=== PATIENT | male | born 1955 | race Caucasian/White ===

== ENCOUNTER 2019-02-09 11:21 | Emergency (ER) | payer MEDICARE, MEDICAID ==
[~2019-02-09] VITALS: Ht 190.5 cm; Wt 43.0 kg
[2019-02-09 13:49] VITALS: BP 110/71
== END 2019-02-09 14:44 | disposition home or self-care (01) ==
LOC: ER 11:22
DX: T81.89XA Other complications of procedures, not elsewhere classified, initial encounter (principal); S30.1XXA Contusion of abdominal wall, initial encounter; X58.XXXA Exposure to other specified factors, initial encounter; Y93.89 Activity, other specified; Y92.89 Other specified places as the place of occurrence of the external cause; Y99.8 Other external cause status
CPT/HCPCS: 93926; 99284

== ENCOUNTER 2019-11-06 08:01 | Outpatient (CLI) | payer MEDICARE, MEDICAID ==
[2019-11-06 09:57] LABS: HEMOGLOBIN A1C 5.2 % (4.5-6.2)
[2019-11-06 10:09] LABS: CHOL/HDL RATIO 1.9 (0.00-4.99); CHOLESTEROL 153 MG/DL (0-200); HDL CHOLESTEROL 81 MG/DL (35-60); LDL CHOLESTEROL 57 MG/DL (50-100); TRIGLYCERIDES 49 MG/DL (20-135)
== END 2019-11-06 23:59 | disposition home or self-care (01) ==
LOC: LAB 08:01
PROVIDERS: ATTEND Family Medicine
DX: R19.5 Other fecal abnormalities (principal); I10 Essential (primary) hypertension; E16.2 Hypoglycemia, unspecified
CPT/HCPCS: 36415; 80061; 83036

== ENCOUNTER 2019-12-24 12:05 | Emergency (ER) | payer MEDICARE, MEDICAID ==
[~2019-12-24] VITALS: Ht 185.4 cm; Wt 70.0 kg
--- NOTE | 2019-12-24 12:42 | NUR ---
PT TO CT
[2019-12-24 14:09] LABS: BASOPHILS % (AUTO) 0.7 % (0-1); EOSINOPHILS # (AUTO) 0.2 X10'3 (0-0.9); EOSINOPHILS % (AUTO) 2.9 % (0-6); HEMATOCRIT 41.2 % (42.0-52.0); HEMOGLOBIN 13.8 g/dl (14.0-17.9); LYMPHOCYTES # (AUTO) 1.9 X10'3 (1.1-4.8); LYMPHOCYTES % (AUTO) 31.1 % (21-51); MEAN CORPUSCULAR HGB CONC 33.5 g/dL (33.0-36.5); MEAN CORPUSCULAR VOLUME 89.4 FL (78-98); MEAN PLATELET VOLUME 8.2 FL (7.4-10.4); MONOCYTES # (AUTO) 0.9 X10'3 (0-0.9); MONOCYTES % (AUTO) 14.5 % (2-12); NEUTROPHILS # (AUTO) 3.1 X10'3 (1.8-7.7); NEUTROPHILS % (AUTO) 50.8 % (42-75); PLATELET COUNT 199 X10'3 (140-440); RED CELL DISTRIBUTION WIDTH 14.2 % (11.5-14.5)
[2019-12-24 14:14] LABS: PARTIAL THROMBOPLASTIN TIME 26 SECONDS (22-32)
[2019-12-24 14:19] LABS: ALANINE AMINOTRANSFERASE 28 U/L (12-78); ALBUMIN 3.4 G/DL (3.4-5.0); ALBUMIN/GLOBULIN RATIO 1.2 (1.1-1.5); ALKALINE PHOSPHATASE 62 IU/L (46-116); ANION GAP 7 (8-16); ASPARTATE AMINO TRANSFERASE 21 U/L (10-37); BILIRUBIN,TOTAL 0.2 MG/DL (0.1-1.0); BLOOD UREA NITROGEN 24 MG/DL (7-18); BUN/CREATININE RATIO 22.6 (5.4-32.0); CALCIUM 8.3 MG/DL (8.5-10.1); CHLORIDE 105 MMOL/L (99-107); CREATININE 1.06 MG/DL (0.60-1.10); GLUCOSE 86 MG/DL (70-104); POTASSIUM 3.9 MMOL/L (3.5-5.1); SODIUM 142 MMOL/L (135-145); TOTAL CARBON DIOXIDE 30.4 MMOL/L (24-32); TOTAL PROTEIN 6.3 G/DL (6.4-8.2); eGFR 70 ML/MIN
--- NOTE | 2019-12-24 15:24 | NUR ---
REPORT CALLED TO [facility] SHREYA ZHANG
[2019-12-24 18:01] VITALS: BP 106/70
== END 2019-12-24 18:05 | disposition short-term general hospital (02) ==
LOC: ER 12:05
DX: S09.90XA Unspecified injury of head, initial encounter (principal); I10 Essential (primary) hypertension; M54.2 Cervicalgia; I25.2 Old myocardial infarction; Z86.69 Personal history of other diseases of the nervous system and sense organs; Z60.2 Problems related to living alone; Z79.2 Long term (current) use of antibiotics; W22.8XXA Striking against or struck by other objects, initial encounter; Y93.89 Activity, other specified; Y92.89 Other specified places as the place of occurrence of the external cause; Y99.8 Other external cause status
CPT/HCPCS: 36415; 70450; 72125; 80053; 85025; 85610; 85730; 99285

== ENCOUNTER 2021-10-11 12:07 | Emergency (ER) | payer MEDICARE, MEDICAID ==
[~2021-10-11] VITALS: Ht 190.5 cm; Wt 62.7 kg
[2021-10-11 12:10] VITALS: BP 108/75
[2021-10-11] MEDS ORDERED: proparacaine 0.5% ophthalmic drops 15ml EACHEYE ONE (13:15)
== END 2021-10-11 15:07 | disposition home or self-care (01) ==
LOC: ER 12:08
DX: H57.12 Ocular pain, left eye (principal); I10 Essential (primary) hypertension; I25.2 Old myocardial infarction; Z86.69 Personal history of other diseases of the nervous system and sense organs; Z98.890 Other specified postprocedural states; Z60.2 Problems related to living alone; Z88.1 Allergy status to other antibiotic agents
CPT/HCPCS: 99282

== ENCOUNTER 2022-03-07 11:23 | Emergency (ER) | payer MEDICARE, MEDICAID ==
[~2022-03-07] VITALS: Ht 190.5 cm; Wt 59.0 kg
[2022-03-07] MEDS ORDERED: ALBUTEROL (14:37)
[2022-03-07] MEDS ORDERED: CHOL500050 PO (14:37)
[2022-03-07] MEDS ORDERED: PHEN100C4 PO (14:37)
[2022-03-07] MEDS ORDERED: METO-395 PO (14:37)
[2022-03-07] MEDS ORDERED: CLOP75TA34 PO (14:37)
[2022-03-07] MEDS ORDERED: FLUT1BLS4 INH (14:37)
[2022-03-07] MEDS ORDERED: SPIR25TA5 PO (14:37)
[2022-03-07 14:55] LABS: BASOPHILS % (AUTO) 0.5 % (0-1); EOSINOPHILS # (AUTO) 0.1 X10'3 (0-0.9); EOSINOPHILS % (AUTO) 0.8 % (0-6); HEMATOCRIT 40.3 % (42.0-52.0); HEMOGLOBIN 14.1 g/dl (14.0-17.9); LYMPHOCYTES # (AUTO) 1.3 X10'3 (1.1-4.8); LYMPHOCYTES % (AUTO) 17.2 % (21-51); MEAN CORPUSCULAR HEMOGLOBIN 30.8 PG (27.0-31.0); MEAN CORPUSCULAR HGB CONC 34.9 g/dL (33.0-36.5); MEAN CORPUSCULAR VOLUME 88.2 FL (78-98); MEAN PLATELET VOLUME 7.2 FL (7.4-10.4); MONOCYTES # (AUTO) 0.8 X10'3 (0-0.9); MONOCYTES % (AUTO) 10.2 % (2-12); NEUTROPHILS # (AUTO) 5.5 X10'3 (1.8-7.7); NEUTROPHILS % (AUTO) 71.3 % (42-75); PLATELET COUNT 209 X10'3 (140-440); RED BLOOD COUNT 4.56 X10'6 (4.70-6.10); RED CELL DISTRIBUTION WIDTH 14.8 % (11.5-14.5); WHITE BLOOD COUNT 7.7 X10'3 (4.5-11.0)
[2022-03-07 15:00] VITALS: BP 114/75
--- NOTE | 2022-03-07 15:00 | NUR ---
telephone report called to VICENTE Chatterjee
[2022-03-07 15:06] LABS: APTT 28 SECONDS (22-32)
[2022-03-07 15:10] LABS: ALANINE AMINOTRANSFERASE 47 U/L (12-78); ALBUMIN 3.8 G/DL (3.4-5.0); ALBUMIN/GLOBULIN RATIO 1.3 (1.1-1.5); ALKALINE PHOSPHATASE 61 IU/L (46-116); ANION GAP 7 (8-16); ASPARTATE AMINO TRANSFERASE 31 U/L (10-37); BILIRUBIN,TOTAL 0.4 MG/DL (0.1-1.0); BLOOD UREA NITROGEN 16 MG/DL (7-18); BUN/CREATININE RATIO 17.6 (5.4-32.0); CALCIUM 8.7 MG/DL (8.5-10.1); CHLORIDE 103 MMOL/L (99-107); CREATININE 0.91 MG/DL (0.60-1.10); GLUCOSE 93 MG/DL (70-104); POTASSIUM 3.8 MMOL/L (3.5-5.1); SODIUM 140 MMOL/L (135-145); TOTAL CARBON DIOXIDE 29.7 MMOL/L (24-32); TOTAL PROTEIN 6.7 G/DL (6.4-8.2); eGFR 83 ML/MIN
== END 2022-03-07 15:27 | disposition short-term general hospital (02) ==
LOC: ER 11:23
DX: S60.212A Contusion of left wrist, initial encounter (principal); S16.1XXA Strain of muscle, fascia and tendon at neck level, initial encounter; I10 Essential (primary) hypertension; Z79.01 Long term (current) use of anticoagulants; Z88.1 Allergy status to other antibiotic agents; Z79.899 Other long term (current) drug therapy; X58.XXXA Exposure to other specified factors, initial encounter; Y92.89 Other specified places as the place of occurrence of the external cause; Y99.8 Other external cause status; Y93.89 Activity, other specified
CPT/HCPCS: 36415; 70450; 73130; 73630; 80053; 85025; 85610; 85730; 99285

== ENCOUNTER 2024-05-24 04:55 | Inpatient (IN) | payer MEDICARE, MEDICAID ==
[2024-05-24] VITALS (9 sets, daily range): PULSE 82–96; RESP 16–26; O2SAT 94–98
[~2024-05-24] VITALS: Ht 190.5 cm; Wt 58.1 kg
[~2024-05-24 04:55] MED LIST: ALBUTEROL; CHOL500050 PO; CLOP75TA34 PO; FLUT1BLS4 INH; METO-395 PO; PHEN100C4 PO; SPIR25TA5 PO
[2024-05-24] MEDS ORDERED: FLUT1BLS16 INH (05:18)
[2024-05-24] MEDS ORDERED: PRED20TA PO (06:07)
[2024-05-24] MEDS ORDERED: AZIT-164 PO (06:07)
[2024-05-24] MEDS: methylPREDNISolone sod succ/PF 40mg inj. IV ONE (06:08)
[2024-05-24] MEDS: azithromycin 250mg tablet PO ONE (06:08)
[2024-05-24] MEDS: CefTRIAXone 2gm/D5W 50ml BAG 50 ML IV ONE (06:08)
[2024-05-24 06:26] LABS: BASOPHILS % (AUTO) 0.2 % (0-1); EOSINOPHILS % (AUTO) 0.4 % (0-6); HEMOGLOBIN 14.8 g/dl (14.0-17.9); LYMPHOCYTES # (AUTO) 0.9 X10'3 (1.1-4.8); LYMPHOCYTES % (AUTO) 13.3 % (21-51); MEAN CORPUSCULAR HEMOGLOBIN 31.2 PG (27.0-31.0); MEAN CORPUSCULAR HGB CONC 34.4 g/dL (33.0-36.5); MEAN CORPUSCULAR VOLUME 90.6 FL (78-98); MEAN PLATELET VOLUME 8.2 FL (7.4-10.4); MONOCYTES # (AUTO) 0.9 X10'3 (0-0.9); MONOCYTES % (AUTO) 12.7 % (2-12); NEUTROPHILS # (AUTO) 5.1 X10'3 (1.8-7.7); NEUTROPHILS % (AUTO) 73.4 % (42-75); PLATELET COUNT 207 X10'3 (140-440); RED BLOOD COUNT 4.74 X10'6 (4.70-6.10); RED CELL DISTRIBUTION WIDTH 14.4 % (11.5-14.5)
[2024-05-24 06:34] LABS: ALANINE AMINOTRANSFERASE 49 U/L (12-78); ALBUMIN 3.9 G/DL (3.4-5.0); ALBUMIN/GLOBULIN RATIO 1.1 (1.1-1.5); ALKALINE PHOSPHATASE 96 IU/L (46-116); ANION GAP 9 (8-16); ASPARTATE AMINO TRANSFERASE 30 U/L (10-37); BILIRUBIN,TOTAL 0.4 MG/DL (0.1-1.0); BLOOD UREA NITROGEN 13 MG/DL (7-18); BUN/CREATININE RATIO 18.8 (10.0-20.0); CALCIUM 9.2 MG/DL (8.5-10.1); CHLORIDE 101 MMOL/L (99-107); CREATININE 0.69 MG/DL (0.60-1.10); GLUCOSE 104 MG/DL (70-104); POTASSIUM 3.7 MMOL/L (3.5-5.1); SODIUM 139 MMOL/L (135-145); TOTAL CARBON DIOXIDE 28.7 MMOL/L (24-32); TOTAL PROTEIN 7.4 G/DL (6.4-8.2); eCRCL 82 ML/MIN; eGFR > 90 ML/MIN
[2024-05-24 06:42] LABS: PRO BRAIN NATRIURETIC PEPTIDE 141 PG/ML (0-125)
[2024-05-24] MEDS: oxyCODONE/APAP 5-325mg tablet PO ONE (08:18)
[2024-05-24] MEDS: normal saline 1000ML IV soln IVB ONE (08:25)
[2024-05-24] MEDS ORDERED: potassium Cl 40MEQ/1/2NS 520ml 520 ML IV PRN (08:40)
[2024-05-24] MEDS ORDERED: magnesium sulf-water 2g/50mL 50 ML IV PRN (08:40)
[2024-05-24] MEDS ORDERED: acetaminophen 325mg tablet PO PRN ×2 (08:40)
[2024-05-24] MEDS ORDERED: magnesium Cl slow-release 64mg tablet PO PRN (08:40)
[2024-05-24] MEDS ORDERED: magnesium sulf-water 4G/100mL 100 ML IV PRN (08:40)
[2024-05-24] MEDS ORDERED: potassium Cl 20 mEq SR tablet PO PRN (08:40)
[2024-05-24] MEDS ORDERED: ondansetron/PF 4mg/2ml inj IV PRN (08:40)
[2024-05-24] MEDS: ipratropium/albuterol 3ml nebule NEB ONE (08:45)
[2024-05-24] MEDS ORDERED: HYDROcodone/acetaminophen 5mg/325mg tablet PO PRN (08:45)
[2024-05-24] MEDS ORDERED: albuterol 2.5 MG/3 ML nebule NEB PRN (08:45)
[2024-05-24 09:19] LABS: ABG BASE EXCESS 0.4 mmol/L (-2.0-3.0); ABG HCO3 24.2 mmol/L (21.0-28.0); ABG OXYGEN SATURATION 95.7 % (94.0-98.0); ABG PH (T) 7.444 (7.350-7.450); ABG PO2 (T) 74.9 mmHg (83.0-108.0); ALLEN'S TEST POSITIVE; FCOHb 0.8 % (0.5-1.5); FHHb 4.3 % (0.0-5.0); FMetHb 0.3 % (0.0-1.5); FO2Hb 94.6 % (94.0-98.0); PATIENT TEMPERATURE 36.6; TOTAL HEMOGLOBIN 14.6 G/dl (13.5-17.5)
[2024-05-24] MEDS: albuterol 2.5 MG/3 ML nebule NEB SCH (11:20)
[2024-05-24] MEDS: clopidogrel 75mg tablet PO SCH (11:50)
[2024-05-24] MEDS ORDERED: ipratropium/albuterol 3ml nebule NEB PRN (11:50)
[2024-05-24] MEDS: metoprolol succinate 25mg (24-HOUR) SR. Tablet PO SCH (11:55)
[2024-05-24] MEDS: spironolactone 25 MG tablet PO SCH (11:55)
[2024-05-24] MEDS: PERFLUTREN PROTEIN-A MICROSPHR (Optison) 0.22 MG/ML 3ML VIAL IV ONE (12:18)
[2024-05-24 12:48] LABS: BILIRUBIN,URINE NEGATIVE (Neg); CLARITY,URINE SLIGHTLY CLOUDY (Clear); COLOR,URINE YELLOW (Yellow); GLUCOSE, URINE NEGATIVE (Neg); KETONES,URINE 15 mg/dl (Neg); LEUKOCYTE ESTERASE ,URINE TRACE (Neg); NITRITES, URINE NEGATIVE (Neg); OCCULT BLOOD,URINE NEGATIVE (Neg); PROTEIN,URINE NEGATIVE (Neg); UA COLLECTION TYPE URINAL; UROBILINOGEN,URINE 0.2 E.U/dL (0.2-1.0)
[2024-05-24 12:50] LABS: MUCUS STRANDS MODERATE /LPF (Neg); SQUAMOUS EPITHELIAL CELL,UR FEW /LPF (FEW); TRANSITIONAL EPI CELLS,URINE FEW /HPF
[2024-05-24 12:51] LABS: BACTERIA,URINE FEW /HPF (Neg); HYALINE CASTS 0-3 /LPF (NEGATIVE); RBC,URINE 0-2 /HPF (0-2); WBC,URINE 20-30 /HPF (0-4)
[2024-05-24 13:51] LABS: CREATININE 0.93 MG/DL (0.60-1.10); POTASSIUM 4.2 MMOL/L (3.5-5.1); eCRCL 61 ML/MIN; eGFR 80 ML/MIN
[2024-05-24 14:14] LABS: PHENYTOIN (DILANTIN) 23.4 UG/ML (10.0-20.0)
[2024-05-24] MEDS ORDERED: heparin, porcine 5000 units/ml vial SQ SCH (20:00)
[2024-05-24] MEDS ORDERED: ATOR-2 PO (21:04)
[2024-05-24] MEDS: phenytoin sod ER 100mg capsule PO SCH (21:37)
[2024-05-24] MEDS: methylPREDNISolone sod succ 125mg/2ml vial IV SCH (21:37)
[2024-05-25] VITALS (21 sets, daily range): BP systolic 103–129; BP diastolic 65–80; PULSE 74–93; RESP 13–28; TEMP 97.3–97.6; O2SAT 94–98
[2024-05-25 03:25] LABS: BASOPHILS % (AUTO) 0.1 % (0-1); EOSINOPHILS % (AUTO) 0.1 % (0-6); HEMOGLOBIN 13.4 g/dl (14.0-17.9); LYMPHOCYTES # (AUTO) 1.2 X10'3 (1.1-4.8); LYMPHOCYTES % (AUTO) 17.1 % (21-51); MEAN CORPUSCULAR HEMOGLOBIN 30.3 PG (27.0-31.0); MEAN CORPUSCULAR HGB CONC 33.6 g/dL (33.0-36.5); MEAN CORPUSCULAR VOLUME 90.4 FL (78-98); MEAN PLATELET VOLUME 7.8 FL (7.4-10.4); MONOCYTES # (AUTO) 0.7 X10'3 (0-0.9); MONOCYTES % (AUTO) 9.8 % (2-12); NEUTROPHILS % (AUTO) 72.9 % (42-75); PLATELET COUNT 212 X10'3 (140-440); RED BLOOD COUNT 4.42 X10'6 (4.70-6.10); RED CELL DISTRIBUTION WIDTH 14.1 % (11.5-14.5); WHITE BLOOD COUNT 6.9 X10'3 (4.5-11.0)
[2024-05-25 03:30] LABS: ALANINE AMINOTRANSFERASE 44 U/L (12-78); ALBUMIN 3.4 G/DL (3.4-5.0); ALBUMIN/GLOBULIN RATIO 1.1 (1.1-1.5); ALKALINE PHOSPHATASE 83 IU/L (46-116); ANION GAP 6 (8-16); ASPARTATE AMINO TRANSFERASE 22 U/L (10-37); BILIRUBIN,TOTAL 0.3 MG/DL (0.1-1.0); BLOOD UREA NITROGEN 12 MG/DL (7-18); BUN/CREATININE RATIO 15.6 (10.0-20.0); CALCIUM 8.6 MG/DL (8.5-10.1); CHLORIDE 101 MMOL/L (99-107); CREATININE 0.77 MG/DL (0.60-1.10); GLUCOSE 116 MG/DL (70-104); SODIUM 138 MMOL/L (135-145); TOTAL CARBON DIOXIDE 30.6 MMOL/L (24-32); TOTAL PROTEIN 6.6 G/DL (6.4-8.2); eCRCL 73 ML/MIN; eGFR > 90 ML/MIN
[2024-05-25] MEDS ORDERED: metoprolol succinate 25mg (24-HOUR) SR. Tablet PO SCH (08:00)
[2024-05-25] MEDS ORDERED: spironolactone 25 MG tablet PO SCH (08:00)
[2024-05-25] MEDS: CefTRIAXone 2gm/D5W 50ml BAG 50 ML IV SCH (08:28)
[2024-05-25] MEDS: atorvastatin 20mg tablet PO SCH (08:30)
[2024-05-25] MEDS: azithromycin/NS 500mg/250ml 250 ML IV SCH (10:07)
[2024-05-25] MEDS: DILANTIN 100 MG PO SCH (19:51)
[2024-05-26] VITALS (20 sets, daily range): BP systolic 98–124; BP diastolic 61–70; PULSE 62–95; RESP 12–25; TEMP 97.4–98.3; O2SAT 92–97
[2024-05-26 06:46] LABS: ALANINE AMINOTRANSFERASE 46 U/L (12-78); ALBUMIN 3.5 G/DL (3.4-5.0); ALBUMIN/GLOBULIN RATIO 1.1 (1.1-1.5); ALKALINE PHOSPHATASE 83 IU/L (46-116); ANION GAP 9 (8-16); ASPARTATE AMINO TRANSFERASE 25 U/L (10-37); BILIRUBIN,TOTAL 0.3 MG/DL (0.1-1.0); BLOOD UREA NITROGEN 16 MG/DL (7-18); BUN/CREATININE RATIO 20.3 (10.0-20.0); CALCIUM 8.8 MG/DL (8.5-10.1); CHLORIDE 100 MMOL/L (99-107); CREATININE 0.79 MG/DL (0.60-1.10); GLUCOSE 89 MG/DL (70-104); POTASSIUM 3.3 MMOL/L (3.5-5.1); SODIUM 139 MMOL/L (135-145); TOTAL CARBON DIOXIDE 29.7 MMOL/L (24-32); TOTAL PROTEIN 6.7 G/DL (6.4-8.2); eCRCL 72 ML/MIN; eGFR > 90 ML/MIN
[2024-05-26 06:52] LABS: BASOPHILS % (AUTO) 0.2 % (0-1); EOSINOPHILS % (AUTO) 0.3 % (0-6); HEMATOCRIT 39.8 % (42.0-52.0); HEMOGLOBIN 13.4 g/dl (14.0-17.9); MEAN CORPUSCULAR HEMOGLOBIN 30.5 PG (27.0-31.0); MEAN CORPUSCULAR HGB CONC 33.6 g/dL (33.0-36.5); MEAN CORPUSCULAR VOLUME 90.7 FL (78-98); MEAN PLATELET VOLUME 7.9 FL (7.4-10.4); MONOCYTES # (AUTO) 0.9 X10'3 (0-0.9); MONOCYTES % (AUTO) 13.2 % (2-12); NEUTROPHILS # (AUTO) 3.6 X10'3 (1.8-7.7); NEUTROPHILS % (AUTO) 55.3 % (42-75); PLATELET COUNT 206 X10'3 (140-440); RED BLOOD COUNT 4.38 X10'6 (4.70-6.10); RED CELL DISTRIBUTION WIDTH 14.3 % (11.5-14.5); WHITE BLOOD COUNT 6.6 X10'3 (4.5-11.0)
[2024-05-26] MEDS: potassium Cl 20 mEq SR tablet PO PRN (08:54)
[2024-05-26] MEDS: DILANTIN 100 MG PO SCH ×2 (08:55→20:20)
[2024-05-26] MEDS ORDERED: FLO0.4C PO (11:08)
[2024-05-26] MEDS ORDERED: LEVO-65 PO (11:10)
[2024-05-26] MEDS: ipratropium/albuterol 3ml nebule NEB PRN (16:19)
[2024-05-26] MEDS: tamsulosin 0.4mg capsule PO SCH (20:14)
[2024-05-27] VITALS (12 sets, daily range): BP systolic 97–116; BP diastolic 63–72; PULSE 63–93; RESP 16–21; TEMP 97.7–97.8; O2SAT 95–100
[2024-05-27] MEDS: morphine 2 MG/ML inj. syringe IV PRN (03:10)
[2024-05-27] MEDS: LidoCAINE 2% Topical Jelly 11mL syringe (UROJET) TOP ONE (03:10)
[2024-05-27 09:21] LABS: BASOPHILS % (AUTO) 0.2 % (0-1); EOSINOPHILS % (AUTO) 0.3 % (0-6); HEMATOCRIT 41.1 % (42.0-52.0); HEMOGLOBIN 13.8 g/dl (14.0-17.9); LYMPHOCYTES # (AUTO) 2.2 X10'3 (1.1-4.8); LYMPHOCYTES % (AUTO) 27.3 % (21-51); MEAN CORPUSCULAR HEMOGLOBIN 30.3 PG (27.0-31.0); MEAN CORPUSCULAR HGB CONC 33.5 g/dL (33.0-36.5); MEAN CORPUSCULAR VOLUME 90.6 FL (78-98); MEAN PLATELET VOLUME 8.1 FL (7.4-10.4); MONOCYTES % (AUTO) 12.3 % (2-12); NEUTROPHILS # (AUTO) 4.9 X10'3 (1.8-7.7); NEUTROPHILS % (AUTO) 59.9 % (42-75); PLATELET COUNT 248 X10'3 (140-440); RED BLOOD COUNT 4.53 X10'6 (4.70-6.10); RED CELL DISTRIBUTION WIDTH 14.4 % (11.5-14.5); WHITE BLOOD COUNT 8.2 X10'3 (4.5-11.0)
[2024-05-27 09:40] LABS: ALANINE AMINOTRANSFERASE 45 U/L (12-78); ALBUMIN 3.5 G/DL (3.4-5.0); ALBUMIN/GLOBULIN RATIO 1.2 (1.1-1.5); ALKALINE PHOSPHATASE 77 IU/L (46-116); ANION GAP 10 (8-16); ASPARTATE AMINO TRANSFERASE 26 U/L (10-37); BILIRUBIN,TOTAL 0.3 MG/DL (0.1-1.0); BLOOD UREA NITROGEN 18 MG/DL (7-18); BUN/CREATININE RATIO 24.7 (10.0-20.0); CALCIUM 8.6 MG/DL (8.5-10.1); CHLORIDE 101 MMOL/L (99-107); CREATININE 0.73 MG/DL (0.60-1.10); GLUCOSE 85 MG/DL (70-104); POTASSIUM 3.8 MMOL/L (3.5-5.1); SODIUM 138 MMOL/L (135-145); TOTAL CARBON DIOXIDE 27.4 MMOL/L (24-32); TOTAL PROTEIN 6.5 G/DL (6.4-8.2); eCRCL 77 ML/MIN; eGFR > 90 ML/MIN
== END 2024-05-27 17:16 | disposition home health service (06) | DRG 191 ==
LOC: ER 04:55 → ED HOLD 08:41 → PCU 3S 05-25 15:20
PROVIDERS: ADMIT Internal Medicine; ATTEND Internal Medicine
DX: J44.1 Chronic obstructive pulmonary disease with (acute) exacerbation (principal); N13.30 Unspecified hydronephrosis; Z68.1 Body mass index [BMI] 19.9 or less, adult; J43.9 Emphysema, unspecified; Z20.822 Contact with and (suspected) exposure to COVID-19; N40.1 Benign prostatic hyperplasia with lower urinary tract symptoms; R33.8 Other retention of urine; E63.9 Nutritional deficiency, unspecified; K40.20 Bilateral inguinal hernia, without obstruction or gangrene, not specified as recurrent; I25.10 Atherosclerotic heart disease of native coronary artery without angina pectoris; Z79.01 Long term (current) use of anticoagulants; I25.2 Old myocardial infarction; Z79.899 Other long term (current) drug therapy; Z91.011 Allergy to milk products; Z95.5 Presence of coronary angioplasty implant and graft; I11.0 Hypertensive heart disease with heart failure; Z88.1 Allergy status to other antibiotic agents; I50.9 Heart failure, unspecified
CPT/HCPCS: 36415; 36600; 71045; 71250; 76770; 80053; 80185; 81001; 82565; 82803; 83605; 83880; 84132; 84484; 85018; 85025; 87040; 87088; 87502; 87503; 87811; 93005; 93306; 94640; 94760; 97110; 97161; 97530; 99285; A4314; A4340; A4615; A5200; C1758; G0378; J0456; J0696; J2270; J2919; J7030; J7040